=== PATIENT | male | born 1960 | race Two or more races ===

== ENCOUNTER 2021-12-08 10:22 | Inpatient (IN) | payer SELFPAY ==
[~2021-12-08] VITALS: Ht 172.7 cm; Wt 63.5 kg
[2021-12-08] MEDS ORDERED: SODIUM CHLORIDE 0.9% 100 ML ONE (10:49)
[2021-12-08] MEDS ORDERED: LOSA-382 PO (10:49)
[2021-12-08] MEDS ORDERED: IOHEXOL 350 MG/ML 100 ML VIAL ONE (10:49)
[2021-12-08] MEDS ORDERED: METF-1211 PO (10:50)
[2021-12-08 10:59] LABS: BASOPHILS % (AUTO) 0.4 % (0.0-2.0); EOSINOPHILS % (AUTO) 0.6 % (1.0-6.0); HEMATOCRIT 45.7 % (41-53); HEMOGLOBIN 15.6 g/dL (13.5-17.5); LYMPHOCYTES # (AUTO) 2.5 K/uL (1.0-4.8); MEAN CORPUSCULAR HEMOGLOBIN 30.2 pg (26.0-34.0); MEAN CORPUSCULAR HGB CONC 34.3 G/dL (31.0-37.0); MEAN CORPUSCULAR VOLUME 88 fL (80-100); MONOCYTES # (AUTO) 0.7 K/uL (0.1-1.0); MONOCYTES % (AUTO) 4.4 % (2.0-9.0); NEUTROPHILS # (AUTO) 13.2 K/uL (1.8-7.7); NEUTROPHILS % (AUTO) 79.6 % (40.0-70.0); PLATELET COUNT (AUTO) 412 K/uL (150-450); RED BLOOD CELL COUNT(AUTO) 5.18 MIL/uL (4.50-5.90); RED CELL DISTRIBUTION WIDTH 13.6 % (11.5-14.5)
[2021-12-08 11:08] LABS: ANION GAP 11 mmol/L (8-16); CALCIUM, TOTAL 9.4 mg/dL (8.8-10.5); CARBON DIOXIDE 24 mmol/L (22-29); CHLORIDE 97 mmol/L (98-107); CREATININE 0.78 mg/dL (0.60-1.30); GLUCOSE,RANDOM 290 mg/dL (70-110); POTASSIUM 3.6 mmol/L (3.5-5.1); SODIUM SERUM 132 mmol/L (136-145); UREA NITROGEN, BLOOD 16 mg/dL (7-18)
[2021-12-08 11:09] LABS: GLOMERULAR FILTR. RATE CALC > 60 mL/min (>60)
[2021-12-08 11:13] LABS: PROTHROMBIN TIME 10.9 SEC (9.4-11.6)
[2021-12-08 11:14] LABS: ALANINE AMINOTRANSFERASE 42 U/L (12-78); ALBUMIN 3.2 g/dL (3.4-5.0); ALKALINE PHOSPHATASE 92 U/L (46-116); ASPARTATE AMINOTRANSFERASE 12 U/L (15-37); BILIRUBIN,TOTAL 0.8 mg/dL (0.1-1.0); TOTAL PROTEIN, SERUM 7.4 g/dL (6.4-8.2)
[2021-12-08] MEDS ORDERED: TETRACAINE HCL/PF 0.5% 4 ML OPHTHALMIC SOLUTION OD ONE (11:30)
[2021-12-08] MEDS ORDERED: DEXTROSE 50%-WATER 25 GM/50 ML SYRINGE IVP PRN (13:30)
[2021-12-08] MEDS ORDERED: ACETAMINOPHEN 325 MG TABLET PO PRN (13:45)
[2021-12-08] MEDS ORDERED: ONDANSETRON HCL 4 MG/2 ML VIAL IVP PRN (13:45)
[2021-12-08] MEDS: ASPIRIN 81 MG CHEWABLE TABLET PO SCH (13:54)
[2021-12-08] MEDS: ATORVASTATIN CALCIUM 40 MG TABLET PO SCH (13:54)
[2021-12-08] MEDS ORDERED: HYDROmorphone 2 MG/ML VIAL IVP ONE ×2 (14:45)
[2021-12-08] MEDS: HEPARIN SODIUM,PORCINE 5,000 UNITS/ML VIAL SQ SCH ×2 (15:13→23:23)
[2021-12-08 17:10] VITALS: BP 132/73
[2021-12-08] MEDS: MetFORMIN HCL 500 MG TABLET PO SCH (17:57)
[2021-12-08] MEDS: INSULIN LISPRO 100 UNITS/ML SQ PRN ×2 (17:59→20:29)
[2021-12-08 19:36] VITALS: BP 139/71
[2021-12-08] MEDS: DOCUSATE SODIUM 100 MG CAPSULE PO SCH (20:29)
[2021-12-08 21:36] LABS: GLUCOMETER DEV NAME(LOC) 5N.3; GLUCOSE,POINT OF CARE 287 MG/DL (70-110)
[2021-12-08 23:32] VITALS: BP 142/77
[2021-12-09 05:22] VITALS: BP 141/86
[2021-12-09] MEDS: INSULIN LISPRO 100 UNITS/ML SQ PRN ×4 (05:50→20:09)
[2021-12-09 08:26] VITALS: BP 140/76
[2021-12-09] MEDS: ASPIRIN 81 MG CHEWABLE TABLET PO SCH (08:36)
[2021-12-09] MEDS: FAMOTIDINE 20 MG TABLET PO SCH (08:37)
[2021-12-09] MEDS: MetFORMIN HCL 500 MG TABLET PO SCH ×2 (08:37→17:44)
[2021-12-09] MEDS: DOCUSATE SODIUM 100 MG CAPSULE PO SCH ×2 (08:37→20:16)
[2021-12-09] MEDS: HEPARIN SODIUM,PORCINE 5,000 UNITS/ML VIAL SQ SCH ×2 (08:37→16:08)
[2021-12-09] MEDS: ATORVASTATIN CALCIUM 40 MG TABLET PO SCH (08:37)
[2021-12-09] MEDS: OxyCODONE HCL/ACETAMINOPHEN 5-325 MG TABLET PO PRN ×2 (08:48→17:44)
[2021-12-09 10:01] LABS: GLUCOMETER DEV NAME(LOC) 5N.3; GLUCOSE,POINT OF CARE 251 MG/DL (70-110)
[2021-12-09 11:42] VITALS: BP 149/80
[2021-12-09 16:15] VITALS: BP 135/81
[2021-12-09 17:21] LABS: GLUCOMETER DEV NAME(LOC) 5S.2B; GLUCOSE,POINT OF CARE 259 MG/DL (70-110)
[2021-12-09 19:32] VITALS: BP 136/75
[2021-12-09 23:45] VITALS: BP 145/75
[2021-12-10] MEDS: HEPARIN SODIUM,PORCINE 5,000 UNITS/ML VIAL SQ SCH ×2 (00:14→08:44)
[2021-12-10 04:11] VITALS: BP 150/75
[2021-12-10] MEDS: INSULIN LISPRO 100 UNITS/ML SQ PRN ×2 (05:36→11:40)
[2021-12-10 07:26] VITALS: BP 145/94
[2021-12-10 07:51] LABS: GLUCOMETER DEV NAME(LOC) 5S.2B; GLUCOSE,POINT OF CARE 275 MG/DL (70-110)
[2021-12-10 07:51] LABS: GLUCOMETER DEV NAME(LOC) 5S.2B; GLUCOSE,POINT OF CARE 327 MG/DL (70-110)
[2021-12-10 07:51] LABS: GLUCOMETER DEV NAME(LOC) 5S.2B; GLUCOSE,POINT OF CARE 251 MG/DL (70-110)
[2021-12-10] MEDS: ATORVASTATIN CALCIUM 40 MG TABLET PO SCH (08:44)
[2021-12-10] MEDS: MetFORMIN HCL 500 MG TABLET PO SCH (08:44)
[2021-12-10] MEDS: FAMOTIDINE 20 MG TABLET PO SCH (08:45)
[2021-12-10] MEDS: ASPIRIN 81 MG CHEWABLE TABLET PO SCH (08:45)
[2021-12-10] MEDS: DOCUSATE SODIUM 100 MG CAPSULE PO SCH (08:45)
[2021-12-10] MEDS: OxyCODONE HCL/ACETAMINOPHEN 5-325 MG TABLET PO PRN (08:55)
[2021-12-10 10:58] VITALS: BP 151/79
[2021-12-10 11:14] LABS: BASOPHILS % (AUTO) 0.4 % (0.0-2.0); HEMATOCRIT 47.6 % (41-53); HEMOGLOBIN 16.4 g/dL (13.5-17.5); LYMPHOCYTES # (AUTO) 2.4 K/uL (1.0-4.8); LYMPHOCYTES % (AUTO) 17.4 % (22.0-44.0); MEAN CORPUSCULAR HEMOGLOBIN 30.6 pg (26.0-34.0); MEAN CORPUSCULAR HGB CONC 34.4 G/dL (31.0-37.0); MEAN CORPUSCULAR VOLUME 89 fL (80-100); MONOCYTES # (AUTO) 0.6 K/uL (0.1-1.0); MONOCYTES % (AUTO) 4.7 % (2.0-9.0); NEUTROPHILS # (AUTO) 10.5 K/uL (1.8-7.7); NEUTROPHILS % (AUTO) 76.5 % (40.0-70.0); PLATELET COUNT (AUTO) 417 K/uL (150-450); RED BLOOD CELL COUNT(AUTO) 5.35 MIL/uL (4.50-5.90); RED CELL DISTRIBUTION WIDTH 13.4 % (11.5-14.5)
[2021-12-10] MEDS ORDERED: MetFORMIN HCL 500 MG TABLET PO SCH (18:00)
[2021-12-10 19:01] LABS: GLUCOMETER DEV NAME(LOC) 5S.2B; GLUCOSE,POINT OF CARE 235 MG/DL (70-110)
[2021-12-11 20:41] LABS: GLUCOMETER DEV NAME(LOC) 5N.3; GLUCOSE,POINT OF CARE 315 MG/DL (70-110)
== END 2021-12-10 14:20 | disposition home or self-care (01) | DRG 125 ==
LOC: EMS 10:46 → 5N 13:34
PROVIDERS: ADMIT Internal Medicine; ATTEND Internal Medicine
DX: E11.319 Type 2 diabetes mellitus with unspecified diabetic retinopathy without macular edema (principal); E11.65 Type 2 diabetes mellitus with hyperglycemia; H53.2 Diplopia; H54.61 Unqualified visual loss, right eye, normal vision left eye; N40.0 Benign prostatic hyperplasia without lower urinary tract symptoms; I10 Essential (primary) hypertension; Z83.3 Family history of diabetes mellitus; Z79.84 Long term (current) use of oral hypoglycemic drugs; Z79.899 Other long term (current) drug therapy
CPT/HCPCS: 70490; 70496; 70498; 70551; 71045; 71250; 80053; 80061; 82948; 82962; 84484; 85025; 85610; 85730; 86850; 86900; 86901; 92610; 93005; 97161; 99285; J1170; J1644; J7050; Q9967; 36415-L1; 36415-TC; 70450; 70450-TC

== ENCOUNTER 2022-02-23 14:21 | Emergency (ER) | payer SELFPAY ==
[~2022-02-23] VITALS: Ht 162.6 cm; Wt 61.4 kg
[~2022-02-23 14:21] MED LIST: LOSA-382 PO; METF-1211 PO
[2022-02-23 14:31] VITALS: BP 136/84
== END 2022-02-23 14:41 | disposition left against medical advice (07) ==
LOC: EMS 14:24
DX: Z53.21 Procedure and treatment not carried out due to patient leaving prior to being seen by health care provider (principal)